=== PATIENT | female | born 1985 | race Caucasian/White ===

== ENCOUNTER 2022-03-17 06:47 | Emergency (ER) | payer BC ==
[~2022-03-17] VITALS: Ht 160 cm; Wt 75.7 kg
[2022-03-17 08:55] LABS: BASO % 0.2 % (0.0-1.0); EOS % 0.3 % (0.0-3.0); HEMATOCRIT 46.5 % (36.0-47.0); HEMOGLOBIN 15.3 g/dl (12.0-15.5); LYMPH # 1.2 10^3/uL (1.5-5.0); LYMPH % 9.3 % (24.0-44.0); MEAN CORPUSCULAR HEMOGLOBIN 31.2 pg (27.0-33.0); MEAN CORPUSCULAR HGB CONC 32.9 g/dl (32.0-36.5); MEAN CORPUSCULAR VOLUME 94.7 fl (80.0-96.0); MONO # 0.8 10^3/uL (0.0-0.8); MONO % 6.1 % (2.0-8.0); NEUTROPHILS # 10.7 10^3/uL (1.5-8.5); NEUTROPHILS % 83.8 % (36.0-66.0); PLATELET COUNT, AUTOMATED 226 10^3/uL (150-450); RED BLOOD COUNT 4.91 10^6/uL (4.00-5.40); WHITE BLOOD COUNT 12.8 10^3/uL (4.0-10.0)
[2022-03-17] MEDS ORDERED: ISOVUE-370 76% 100ML VIAL As Ordered ONE (09:25)
[2022-03-17 10:03] LABS: ALBUMIN 3.9 GM/DL (3.2-5.2); ALT/SGPT 40 U/L (12-78); BILIRUBIN,DIRECT < 0.1 MG/DL (0.0-0.2); BILIRUBIN,TOTAL 0.5 MG/DL (0.2-1.0); LIPASE 104 U/L (73-393); TOTAL PROTEIN 7.6 GM/DL (6.4-8.2)
[2022-03-17] MEDS ORDERED: KETOROLAC 30 MG/ML 1ML VIAL IV ONE (10:30)
[2022-03-17 12:54] VITALS: BP 119/82
== END 2022-03-17 13:01 | disposition home or self-care (01) ==
LOC: M ED 06:47
DX: D25.9 Leiomyoma of uterus, unspecified (principal); D18.03 Hemangioma of intra-abdominal structures; Z88.0 Allergy status to penicillin
CPT/HCPCS: 74177; 76830; 76856; 80047; 80076; 81000; 81015; 83690; 84702; 85025; 87086; 93976; 96374; 99284; J1885; Q9967